=== PATIENT | female | born 1975 | race Caucasian/White ===

== ENCOUNTER 2017-01-10 10:57 | Emergency (ER) | payer OTHER ==
[~2017-01-10] VITALS: Ht 152.4 cm; Wt 98.5 kg
[~2017-01-10 10:57] MED LIST: IBUP-1542 PO
[2017-01-10 11:01] VITALS: Ht 152.4 cm; Wt 98.5 kg
--- NOTE | 2017-01-10 11:33 | ERD ---
ER Documentation Chief Complaint Date/Time DATE: 01/10/17 TIME: 11:27 Chief Complaint MACEDO X 2 WEEKS. HPI 41-year-old female who presented emergency room for frontal and maxillary sinus pain for about 2 weeks. Stated that she felt like she had a fever 3 days ago but never took her temperature. She also complains of mild congestion. Denies that this is the worst headache of her life head trauma, head injury, loss of consciousness, dizziness, blurry vision, changes in vision, photophobia , facial pain, ear pain, throat pain, difficulty swallowing, neck pain, shoulder pain, chest pain, cough, hemoptysis, abdominal pain, back pain, loss of appetite, nausea, vomiting, hematochezia, diarrhea, constipation, urinary symptoms, , the possibility of being , bladder and bowel incontinences, extremity weakness, extremity tenderness, numbness or tingling sensation, difficulty walking, recent travel, recent exposure to illness, recent antibiotic use in the last 3 months, fever, chills. Allergy: NKDA PMH: Denies. Family medical history: Denies family history of hypertension, stroke, heart disease. AO LMP: 01/03/2017 Medications: Denies. Surgery: Denies. Primary Social History: Not working at this time. Denies smoking, use of alcohol, use of illegal drugs. ROS All systems reviewed and are negative except as per history of present illness. Medications Home Meds Active Scripts Ibuprofen* (Motrin*) 600 Mg Tab, 600 MG PO Q6H Y for PAIN AND OR ELEVATED TEMP, #30 Prov:[employer] 06/24/15 Allergies Allergies: Coded Allergies: No Known Allergy (Unverified , 01/10/17) PMhx/Soc Medical and Surgical Hx: pt denies Medical Hx, pt denies Surgical Hx History of Surgery: No Anesthesia Reaction: No Hx Neurological Disorder: No Hx Respiratory Disorders: No Hx Cardiac Disorders: No Hx Psychiatric Problems: No Hx Miscellaneous Medical Probl: No Hx Alcohol Use: No Hx Substance Use: No Hx Tobacco Use: No Smoking Status: Never smoker Physical Exam Vitals Vital Signs Date Time Temp Pulse Resp B/P Pulse Ox O2 Delivery O2 Flow Rate FiO2 01/10/17 11:01 98.1 83 19 162/72 100 Physical Exam CONSTITUTIONAL: Well-appearing; well-nourished; in no apparent distress. HEAD: Normocephalic; atraumatic. EYES: Conjunctiva clear, sclera non-icteric, EOM intact. PERRL Ears: Hearing intact. EACs clear, TMs non-bulging, non-inflamed, translucent & mobile, ossicles normal appearance, No obstructions, no erythema, no discharges Nose: No obstructions. No polyps. No external lesions. Nasal congestion. No external lesions, septum and turbinates normal. No rhinorrhea. No discharges. Frontal sinus is tender to palpation. Maxillary sinus is tender to palpation. MOUTH: Moist mucous membranes, no lesion, no obstructions, no vesicles, no thrush, patent airway Throat: Uvula in midline. Right tonsil is +1 with no erythema, no exudate. Left tonsil is +1 with no erythema, no exudate. Tolerating secretions well. Good gag reflex. Patent airway. Neck: Supple, without lesions, bruits, or adenopathy. No mass. Thyroid non- enlarged and non-tender to palpation. Good and full range of motion of neck. CHEST: Symmetrical chest. Respirations even and not labored. No retractions noted. CARDIOVASCULAR: Normal S1, S2. RRR. No murmurs, gallops. RESPIRATORY: Normal chest excursion with respiration; breath sounds clear and equal bilaterally; no wheezes, rhonchi, or rales. Breathing even and unlabored. Speaking in clear, full, and complete sentences w/ ease. ABDOMEN: Normal bowel sounds normal. Soft, round, non-distended, non-guarding, no tenderness, no rebound, no organomegaly, no masses, no pulsating abdominal mass. No hernia. No peritoneal signs. : No CVA tenderness. BACK: Symmetrical shoulder. Spine is midline without deformity, tenderness. No evidence of trauma or deformity. PELVIS: Stable pelvis. No evidence of trauma or deformity. MUSCULOSKELETAL: Normal gait and station. No misalignment, asymmetry, crepitation, defects, tenderness, masses, effusions, decreased range of motion, instability, atrophy or abnormal strength or tone in the head, neck, spine, ribs , pelvis or extremities. No calf tenderness. NEUROVASCULAR: Distal pulses are present. Pedal pulse are present, equal, and normal. Capillary refills are < 2 seconds. NEUROLOGIC: Alert and oriented x4. Speaks full and clear sentences. Cranial Nerves II-XII normal. Sensation to pain, touch, and proprioception normal. Grossly unremarkable. No neurologic deficits. Romberg test is negative. PSYCHOLOGICAL: The patients mood and manner are appropriate. No hallucinations , delusions. Not SI. Not HI. Has the capacity to decide for self SKIN: Normal for age and ethnicity; warm; dry; good turgor; no apparent lesions or exudates. No rashes, hives, discoloration. Intact. Procedures/MDM Examination: Please see physical examination. Disease process, medical treatment was explained to the patient and family member. They verbalized understanding and agreed with the diagnostic tests, medical treatment, and follow-up care. Re-evaluation: Denies headache, dizziness, blurry vision, neck pain, shoulder pain, chest pain, abdominal pain. No episode of emesis in the emergency department. No unilateral deficits. Speaks full and clear sentences. No neurological deficits. No neurovascular deficits. Consultation: None. Differential diagnosis: Subarachnoid hemorrhage versus stroke versus migraine versus headache versus sinus headache Medical decision makin-year-old female who presented emergency room for frontal and maxillary sinus pain for about 2 weeks. Stated that she felt like she had a fever 3 days ago but never took her temperature. She also complains of mild congestion. Patient's complaint, patient's history about her complaint , my physical findings, my reevaluation I consistent with my final diagnosis of acute sinusitis, sinus headache. I have low suspicion for subarachnoid hemorrhage, stroke, vertigo, migraine. Medications prescribed are the following: Amoxicillin. Motrin. Zofran. Meclizine. Patient and family member are made aware of the side effects and adverse reactions of the medications prescribed. Instructed on when to seek emergent and medical attention in case allergic/anaphylactic reactions or severe side effects and or adverse reactions to medications. Patient and family member verbalized understanding. Patient instructed Instructed to follow-up with his PCP in 24-48 hours. . Instructed to Call 911 for chest pain, shortness of breath. Advised to come back here in ED as soon as possible for severity of symptoms which includes but not limited to: any new symptoms; shortness of breath/difficulty of breathing; cardiovascular changes; severe gastrointestinal symptoms; signs and symptoms of bleeding and or infection; signs of compartment syndrome/neurovascular changes; neurological changes/deficits. Patient and family member verbalized understanding. Upon discharge, patient is alert and oriented x 4, speaks full and clear sentences, denies pain, has no neurological deficits, has no neurovascular deficits, difficulty of breathing. Breathing even and unlabored. Lung sounds are clear to auscultation. Not in distress. Appears comfortable. Ambulatory with steady gait. Appears satisfied with care provided here in ED. Departure Diagnosis: Primary Impression: Headache Additional Impressions: Sinusitis, acute maxillary Sinusitis, acute frontal Condition: Stable Additional Instructions: Patient instructed Instructed to follow-up with his PCP in 24-48 hours. . Instructed to Call 911 for chest pain, shortness of breath. Advised to come back here in ED as soon as possible for severity of symptoms which includes but not limited to: any new symptoms; shortness of breath/difficulty of breathing; cardiovascular changes; severe gastrointestinal symptoms; signs and symptoms of bleeding and or infection; signs of compartment syndrome/neurovascular changes; neurological changes/deficits. Patient and family member verbalized understanding. ALVARADO CUELLAR January 10, 2017 11:33
[2017-01-10] MEDS ORDERED: AMO500 PO (11:34)
[2017-01-10] MEDS ORDERED: IBUP800T25 PO (11:34)
[2017-01-10] MEDS ORDERED: ONDA4TAB14 PO (11:35)
[2017-01-10] MEDS ORDERED: MECL12.574 PO (11:35)
[2017-01-10] MEDS ORDERED: IBUPROFEN 800 MG TAB PO ONE (12:00)
[2017-01-10] MEDS ORDERED: MECLIZINE 12.5 MG TAB PO ONE (12:00)
[2017-01-10 12:17] VITALS: BP 118/68; PULSE 78; RESP 18
== END 2017-01-10 12:18 | disposition home or self-care (01) ==
LOC: FTE 10:57
DX: R51 Headache (principal); J01.00 Acute maxillary sinusitis, unspecified; J01.10 Acute frontal sinusitis, unspecified
CPT/HCPCS: Z7502; Z7610; 99284